=== PATIENT | female | born 1960 | race African-American/Black ===

== ENCOUNTER 2020-12-06 04:30 | Day surgery (SDC) | payer BC ==
[2020-12-05 09:34] VITALS: BMI 24.7
[2020-12-06 10:46] VITALS: TEMP 97.5
[2020-12-06 11:37] VITALS: BP 157/83; PULSE 70
== END 2020-12-06 11:28 | disposition home or self-care (01) ==
LOC: JASU-ENDO 04:30
PROVIDERS: ATTEND Internal Medicine Gastroenterology
PROC: 0DJD8ZZ Inspection of Lower Intestinal Tract, Via Natural or Artificial Opening Endoscopic (ICD-10-PCS; principal; 2020-12-06 10:00)
DX: Z12.11 Encounter for screening for malignant neoplasm of colon (principal); K64.8 Other hemorrhoids; Z80.0 Family history of malignant neoplasm of digestive organs; Z88.6 Allergy status to analgesic agent; Z88.8 Allergy status to other drugs, medicaments and biological substances; Z91.040 Latex allergy status

== ENCOUNTER 2024-01-06 11:05 | Emergency (ER) | payer BC, OTHER ==
[2024-01-06 11:11] VITALS: BP 172/72; PULSE 83; RESP 20; TEMP 98.6; BMI 26.0
[2024-01-06] MEDS ORDERED: ACETAMINOPHEN 500 MG TABLET (FP) ONE (11:37)
[2024-01-06] MEDS: ACETAMINOPHEN 500 MG TABLET (FP) PO ONE (11:43)
== END 2024-01-06 14:20 | disposition home or self-care (01) ==
LOC: FER 11:05
DX: S09.90XA Unspecified injury of head, initial encounter (principal); H53.8 Other visual disturbances; W21.02XA Struck by soccer ball, initial encounter; Y92.219 Unspecified school as the place of occurrence of the external cause; Y99.0 Civilian activity done for income or pay
CPT/HCPCS: 70450-TC; 99284-25